=== PATIENT | male | born 1990 ===

== ENCOUNTER 2024-10-07 03:13 | Day surgery (SDC) | payer MEDICAID, SELFPAY ==
[2024-10-07] VITALS (10 sets, daily range): BP systolic 106–161; BP diastolic 66–95; PULSE 52–77; RESP 16–20; TEMP 36.1–37.3; O2SAT 92–97; BMI 35.4
--- NOTE | ~2024-10-07 | CT_ITS ---
CLINICAL HISTORY: L flank pain, hematuria CT abdomen and pelvis without contrast Comparison: None Findings: Mild dependent subsegmental atelectasis is seen in bilateral lower lobes. There is diffuse hypoattenuation of the liver with focal fatty sparing near the hayde hepatis and gallbladder fossa. 8 mm stone is seen at the left ureterovesical junction with severe left hydroureteronephrosis and mild asymmetric left perinephric edema. The noncontrast appearance of the gallbladder, pancreas, spleen, bilateral adrenal glands, and right kidney is within normal limits. There is no evidence of bowel obstruction. The appendix appears normal. There is no pneumoperitoneum or ascites. No adenopathy is seen. No acute fracture. IMPRESSION: 1. 8 mm stone at the left ureterovesical junction with severe left hydroureteronephrosis and mild asymmetric left perinephric edema. 2. Hepatic steatosis. This document has been electronically signed by: Kalen Silva on 10/07/2024 07:31:24
--- NOTE | ~2024-10-07 | FL_ITS ---
EXAMINATION: FL GUIDANCE ONLY HISTORY: left ureteral stone COMPARISON: Correlation is made with a CT of the abdomen and pelvis without contrast performed earlier in the day. TECHNIQUE: Fluoroscopy time: 31.5 seconds. Cumulative Dose: 18.99 mGy. Images: 3. FINDINGS: Images demonstrate placement of a left nephroureteral stent. FL/FL guidance in OR IMPRESSION: Fluoroscopy during procedure. Please see procedure report for additional information. Electronically signed by: Efren Mills MD 10/08/2024 07:12 AM EDT
[2024-10-07 03:46] LABS: Basophils Percent Auto 0.2 % (0-2); Hematocrit 40.1 % (42.0-52.0); Hemoglobin 14.6 g/dl (14.0-18.0); Imm Gran Abs Auto 0.07 X10*3/uL (0.00-0.03); Imm Gran Pct Auto 0.4 % (0.0-0.4); Lymphocytes Absolute Auto 2.3 X10*3/uL (1.2-4.9); Lymphocytes Percent Auto 13.6 % (20-40); Mean Corpuscular HGB Conc 36.4 g/dl (31.0-36.0); Mean Corpuscular Hemoglobin 31.7 pg (27.0-33.0); Mean Corpuscular Volume 87.2 fL (80.0-98.0); Mean Platelet Volume 9.4 fL (9.4-12.4); Monocytes Absolute Auto 1.6 X10*3/uL (0.1-1.2); Monocytes Percent Auto 9.9 % (2-11); Neutrophils Absolute Auto 12.6 x10*3/uL (2.0-8.3); Neutrophils Percent Auto 75.9 % (45-73); Platelet Count 337 X10*3/uL (160-400); Red Cell Distribution Width 11.9 % (11.0-16.0); SCAN SMEAR FLAG 1; White Blood Count 16.6 X10*3/uL (4.8-10.8)
[2024-10-07 03:49] LABS: MANUAL DIFF FLAG SCAN
[2024-10-07 04:04] LABS: SLIDE REVIEW VERIFIED
[2024-10-07 04:05] LABS: Alanine Aminotransferase 45 U/L (0-40); Albumin Level 4.8 g/dL (3.5-5.0); Alkaline Phosphatase 85 U/L (39-117); Anion Gap 16 (12-20); Aspartate Amino Transferase 34 U/L (5-37); Blood Urea Nitrogen 17 mg/dL (9-16); Calcium 9.5 mg/dL (8.4-10.2); Carbon Dioxide 23 mmol/L (22-29); Chloride 104 mmol/L (96-108); Creatinine Clr Calc Pharmacy 77.1; Estimated Glomerular Filt Rate 49; Glucose Random 124 mg/dL (60-115); Lipase 11 U/L (8-78); Potassium 3.7 mmol/L (3.3-5.1); Sodium 139 mmol/L (135-145); Total Protein 7.7 g/dL (6.5-8.0)
[2024-10-07 04:44] LABS: Appearance Urine Clear; Color Urine Yellow; Glucose Urine UA Negative (Negative); Leukocyte Esterase Urine Small (1+) (Negative); Nitrite Urine Negative (Negative); PH 7.5 (5.0-9.0); Specific Gravity - Urine >= 1.030 (1.005-1.025); UMIC TRIGGER UACC YES; Urine Blood Small (1+) (Negative); Urine Ketones Trace mg/dL (Negative); Urine Protein 30 (1+) mg/dL (Neg-Trace)
[2024-10-07 04:46] LABS: Bacteria Urine None Seen (None Seen); Hyaline Casts Urine 0-2 /LPF (0-2); RBC Urine >20 /HPF (0-2); Squamous Epithelial Cell Urine 0-2 /HPF (0-2); UACC Culture Trigger YES
--- NOTE | 2024-10-07 06:04 | ED_ITS ---
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 His partners states he was thrashing around and in so much pain. He has had n/v but no diarrhea. He thinks his urine is normal. He has no pain with moving or touching his back and no known injury. He states he felt pain in his L testicle as well but no discharge, rash, no pain now. no hx of renal colic. MD Complaint: other (n/v flank pain) Onset (ago): day(s) (yesterday AM) Duration: constant Location: left flank Radiation: left testicle Severity: severe Quality: sharp Relieving factors: none Exacerbating factors: none Associated symptoms: Reports nausea/vomiting Related Data Allergies Allergy/AdvReac Type Severity Reaction Status Date / Time No Known Allergies Allergy Verified 10/07/24 03:32 Review of Systems 2 Review of Systems: Constitutional : No Weight loss, No Fever, No Chills ENT/Mouth : No sore throat, No Rhinorrhea Eyes: No Swelling, No Redness Cardiovascular : No Chest Pain, No SOB, NoEdema Respiratory : No Cough, No Sputum, No Wheezing Gastrointestinal : Positive Nausea, Positive Vomiting, no Diarrhea, positive abdominal Pain, No Hematochezia, No Melena Genitourinary : pos Dysuria, No Urinary Frequency, No Hematuria, No Urgency Musculoskeletal : No joint pain, No Myalgias, No Joint Swelling Skin : No Skin Lesions, No rash Neuro : No Weakness, No Numbness, No Dizziness, No Headache All other systems reviewed and are negative. [facility] Past Medical History Attestation statement: The following information was validated with the patient. Source: old records reviewed Medical History (Updated 10/07/24 @ 06:54 by Zonia Wade DO) No pertinent past medical history Social History Social History (Updated 10/07/24 @ 06:18 by Zonia Wade DO) Patient Tobacco Use Status: Never used Tobacco Advance Directives: No Advance Directives Information Provided: No Physical Exam 2 Vital Signs: Vital Signs: Last Vital Signs Temp 97.9 F 10/07/24 05:44 Pulse 59 10/07/24 05:44 Resp 16 10/07/24 05:44 BP 161/82 H 10/07/24 05:44 Pulse Ox 97 10/07/24 05:44 O2 Del Method Room Air 10/07/24 05:44 BMI result Body Mass Index 35.4 Appearance: Alert. Oriented X3. No acute distress. Eyes: Pupils equal, round and reactive to light. ENT: Pharynx normal. Neck: Normal inspection. Neck supple. CVS: Normal heart rate and rhythm. Pulses normal. Respiratory: No respiratory distress. Breath sounds normal. Abdomen: Soft and nontender. no L flank ttp : no testicular pain or mass Skin: Skin warm and dry. Normal skin color. Normal skin turgor. Extremities: No lower extremity edema. Neuro: Oriented X 3. No motor deficit. No sensory deficit. CN2-12 intact Medications Administered Discontinued Medications Generic Name Dose Route Start Last Admin Trade Name López PRN Reason Stop Dose Admin Lactated Ringer's 1,000 mls @ 999 mls/hr 10/07/24 05:50 10/07/24 06:28 Lr IV 10/07/24 06:50 999 mls/hr .Q1H1M ONE Administration Lactated Ringer's 1,000 mls @ 999 mls/hr 10/07/24 05:51 10/07/24 06:29 Lr IV 10/07/24 06:51 999 mls/hr .Q1H1M ONE Administration Ondansetron HCl 4 mg 10/07/24 05:50 10/07/24 06:26 Ondansetron Hcl 4 Mg/2 Ml Vial IVPUSH 10/07/24 05:51 4 mg ONCE ONE Administration Medical Decision Making Medical Decision Making MDM Narrative: 34 yo male with no sig PMH here with c/o L flank pain and n/v has hematuria in urine as well - will need basic labs, UA, CT scan for renal colic. IV zofran ordered for symptoms. I suspect at this time he has renal colic vs MSK strain. He is in no pain now after waiting - suspect passed stop or the stone has stopped moving. Differential Diagnosis Differential Diagnoses: The differential diagnosis associated with the presentation includes renal colic, constipation, MSK strain Admission/Observation Consideration of admission/observation: Escalation of care including admission/observation considered Lab Data MDM Lab Attestation statement: I reviewed the patient's lab results. 10/07/24 03:41 10/07/24 03:41 Labs: Lab Results 10/07/24 10/07/24 Range/Units 03:41 04:25 WBC 16.6 H (4.8-10.8) X10*3/uL RBC 4.60 (4.60-5.80) X10*6/uL Hgb 14.6 (14.0-18.0) g/dl Hct 40.1 L (42.0-52.0) % MCV 87.2 (80.0-98.0) fL MCH 31.7 (27.0-33.0) pg MCHC 36.4 H (31.0-36.0) g/dl RDW 11.9 (11.0-16.0) % Plt Count 337 (160-400) X10*3/uL MPV 9.4 (9.4-12.4) fL Immature Gran % (Auto) 0.4 (0.0-0.4) % Neut % (Auto) 75.9 H (45-73) % Lymph % (Auto) 13.6 L (20-40) % Power % (Auto) 9.9 (2-11) % Eos % (Auto) 0.0 (0-4) % Baso % (Auto) 0.2 (0-2) % Lymph # (Auto) 2.3 (1.2-4.9) X10*3/uL Power # (Auto) 1.6 H (0.1-1.2) X10*3/uL Eos # (Auto) 0.0 (0.0-0.4) X10*3/uL Baso # (Auto) 0.0 (0.0-0.2) X10*3/uL Abs Immat Gran (auto) 0.07 H (0.00-0.03) X10*3/uL Absolute Neuts (auto) 12.6 H (2.0-8.3) x10*3/uL Absolute Nucleated RBC 0.000 (0.0-0.012) X10*3/uL Nucleated RBC % (auto) 0.0 (0.0-0.2) /100WBC Smear Tech's Comments VERIFIED Sodium 139 (135-145) mmol/L Potassium 3.7 (3.3-5.1) mmol/L Chloride 104 (96-108) mmol/L Carbon Dioxide 23 (22-29) mmol/L Anion Gap 16 (12-20) BUN 17 H (9-16) mg/dL Creatinine 1.61 H (0.5-1.4) mg/dL Estim Creat Clear Calc 77.1 Estimated GFR 49 Random Glucose 124 H (60-115) mg/dL Calcium 9.5 (8.4-10.2) mg/dL Total Bilirubin 1.0 (0.0-1.0) mg/dL AST 34 (5-37) U/L ALT 45 H (0-40) U/L Alkaline Phosphatase 85 (39-117) U/L Total Protein 7.7 (6.5-8.0) g/dL Albumin 4.8 (3.5-5.0) g/dL Lipase 11 (8-78) U/L Urine Color Yellow Urine Appearance Clear Urine pH 7.5 (5.0-9.0) Ur Specific [place] >= 1.030 H (1.005-1.025) Urine Protein 30 (1+) H (Neg-Trace) mg/dL Urine Glucose (UA) Negative (Negative) mg/dL Urine Ketones Trace (Negative) mg/dL Urine Blood Small (1+) H (Negative) Urine Nitrite Negative (Negative) Ur Leukocyte Esterase Small (1+) H (Negative) Urine RBC >20 H (0-2) /HPF Urine WBC 6-10 H (0-5) /HPF Ur Squamous Epith Cells 0-2 (0-2) /HPF Urine Bacteria None Seen (None Seen) Hyaline Casts 0-2 (0-2) /LPF Independent Interpretation I performed an independent interpretation of an: CT Scan (L UVJ stone large) Radiology Impression Discussion of test interpretation with radiology: I have reviewed the radiologist's reading. Independent Historian Clinical information obtained from an independent historian. History obtained from or confirmed by: Spouse External Record Review External record reviewed: Outpatient record Prescription Management I considered prescription management with: Other Discharge Plan Discharge Clinical Impression: Left flank pain, Left ureteral stone, PEDRO (acute kidney injury) Instructions: Flank Pain (ED) Print Language: Amharic
[2024-10-07] MEDS: ondansetron HCL 4 MG/2 ML VIAL IVPUSH (06:26)
[2024-10-07] MEDS: Lactated Ringers 1,000 ML 999 ML IV ×2 (06:28→06:29)
--- NOTE | 2024-10-07 06:45 | PC.NURSE ---
assumed care of pt, Respirations even and unlabored. Pt complains of nausea, Medicated per JUN.
[2024-10-07] MEDS: Midazolam HCl 2 MG/2 ML VIAL IVPUSH (10:08)
[2024-10-07] MEDS: Lactated Ringers 1,000 ML 125 ML IVCONT (10:08)
--- NOTE | 2024-10-07 11:40 | PC.NURSE ---
Assumed care of this patient at 1100, patient moved out to [facility] for space needs of the department. Walked to with a steady gait. Informed he will be going to procedure later this afternoon, previous RN Sana spoke to [facility] gave report. Patient resting quietly on stretcher at this time.
--- NOTE | 2024-10-07 14:34 | P.HPGS_ITS ---
History of Present Illness History of Present Illness Date of Service: 10/07/24 Chief complaint: lower pack pain Narrative: Iglesia Gaines is a 34 year old male who presented to the ED with left flank pain associated with nausea and vomiting. CTAP 8 mm distal left ureteral stone with hydronephrosis. Urinalysis no signs for infection. Review of Systems Review of Systems: Yes all other systems are reviewed and are negative Constitutional: Constitutional: Reports no additional constitutional complaints Eyes: Eyes: Reports no additional eye complaints ENT: Reports system reviewed and no additional complaints, except as documented Cardiovascular: Cardiovascular: Reports no additional cardiovascular complaints Respiratory: Respiratory: Reports no additional respiratory complaints Gastrointestinal: Gastrointestinal: Reports no additional gastrointestinal complaints Genitourinary: Genitourinary: Reports as per HPI Musculoskeletal: Musculoskeletal: Reports no additional musculoskeletal complaints Integumentary/Breasts: Skin/Breast: Reports system reviewed and no additional complaints, except as docu Neurologic: Reports system reviewed and no additional complaints, except as documented Psychiatric: Psychiatric: Reports no additional psychiatric complaints Endocrine: Endocrine: Reports no additional endocrine complaints Hematologic/Lymphatic: Hematologic/Lymphatic: Reports no additional hematologic/lymphatic complaints Allergic/Immunologic: Allergic/Immunologic: Reports no additional allergic/immunologic complaints PMFSH Past Medical History Medical History (Updated 10/07/24 @ 14:37 by Medardo Turpin MD) No pertinent past medical history Social History Social History (Updated 10/07/24 @ 06:18 by Zonia Wade DO) Patient Tobacco Use Status: Never used Tobacco Advance Directives: No Advance Directives Information Provided: No Meds Allergies Allergy/AdvReac Type Severity Reaction Status Date / Time No Known Allergies Allergy Verified 10/07/24 03:32 Active Medications: Current Medications Lactated Ringer's (Lr) 1,000 mls @ 125 mls/hr IVCONT .Q8H CYNTHIA Last Admin: 10/07/24 10:08 Dose: 125 mls/hr Cefazolin Sodium/Dextrose (Ancef) 2 gm in 50 mls @ 100 mls/hr IV PREOP ONE Stop: 10/07/24 15:01 Physical Exam Vital Signs: Vital Signs: Last Vital Signs Temp 99.1 F 10/07/24 14:21 Pulse 73 10/07/24 14:21 Resp 16 10/07/24 14:21 BP 132/78 10/07/24 14:21 Pulse Ox 94 10/07/24 14:21 O2 Del Method Room Air 10/07/24 14:21 BMI result Body Mass Index 35.4 Const: General: healthy appearing, no acute distress and well developed Orientation/consciousness: patient oriented x3 HEENT: Head: Yes normocephalic and Yes atraumatic Eyes: Conjunctivae: conjunctivae normal Neck: Neck: Yes normal visual inspection Chest: Chest palpation & inspection: normal inspection of the chest Resp: Effort & Inspection: normal respiratory effort GI: Inspection: Yes normal to inspection : General: Yes CVA tenderness (Left) Back/Spine/Pelvis: Back: CVA tenderness (Left) Neuro: General: patient oriented x3 Psych: Appearance: grossly normal Affect: normal affect Results Results Labs: Short CBC 10/07/24 Range/Units 03:41 WBC 16.6 H (4.8-10.8) X10*3/uL Hgb 14.6 (14.0-18.0) g/dl Hct 40.1 L (42.0-52.0) % Plt Count 337 (160-400) X10*3/uL BMP 10/07/24 03:41 Sodium 139 Potassium 3.7 Chloride 104 Carbon Dioxide 23 BUN 17 H Creatinine 1.61 H Calcium 9.5 Liver Function 10/07/24 Range/Units 03:41 Total Bilirubin 1.0 (0.0-1.0) mg/dL AST 34 (5-37) U/L ALT 45 H (0-40) U/L Alkaline Phosphatase 85 (39-117) U/L Albumin 4.8 (3.5-5.0) g/dL Urine 10/07/24 Range/Units 04:25 Urine Color Yellow Urine Appearance Clear Urine pH 7.5 (5.0-9.0) Ur Specific [place] >= 1.030 H (1.005-1.025) Urine Protein 30 (1+) H (Neg-Trace) mg/dL Urine Glucose (UA) Negative (Negative) mg/dL Abdomen CT scan report/results: report reviewed and image reviewed CT scan - pelvis: report reviewed and image reviewed Additional studies: Date of Service: 10/07/24 CLINICAL HISTORY: L flank pain, hematuria CT abdomen and pelvis without contrast Comparison: None Findings: Mild dependent subsegmental atelectasis is seen in bilateral lower lobes. There is diffuse hypoattenuation of the liver with focal fatty sparing near the hayde hepatis and gallbladder fossa. 8 mm stone is seen at the left ureterovesical junction with severe left hydroureteronephrosis and mild asymmetric left perinephric edema. The noncontrast appearance of the gallbladder, pancreas, spleen, bilateral adrenal glands, and right kidney is within normal limits. There is no evidence of bowel obstruction. The appendix appears normal. There is no pneumoperitoneum or ascites. No adenopathy is seen. No acute fracture. IMPRESSION: 1. 8 mm stone at the left ureterovesical junction with severe left hydroureteronephrosis and mild asymmetric left perinephric edema. Assessment and Plan (1) PEDRO (acute kidney injury): Status: Acute (2) Left ureteral stone: Status: Acute (3) Left flank pain: Status: Acute (4) Hydronephrosis, left: Status: Acute Plan Left obstructive uropathy. Plan for Cystoscopy, left ureteroscopy, possible laser lithotripsy, possible ureteral stent. Risks discussed included but not limited to, possible need to repeat procedure if stone is not completely fragmented, Irritative voiding symptoms, bladder spasms, urgency, blood in urine. Quality Stroke Does the patient have a stroke diagnosis?: No VTE Prior VTE?: No VTE Risk Level:: Surgical - low VTE Device Contraindication: N/A - Device Ordered VTE Drug Contraindication: Treatment Not Indicated Procedures Date of Service Date of Service: 10/07/24
--- NOTE | 2024-10-07 15:06 | PC.NURSE ---
Pt taken to pre-op by OR tech.
--- NOTE | 2024-10-07 15:48 | HO.ANESPROP2 ---
HPI - Anesthesia Eval Consult details Narrative: 34 M for cystoscopy and stent PMFSH Active Problems Active Problems: All Active Problems Hydronephrosis, left (Acute) PEDRO (acute kidney injury) (Acute) Left ureteral stone (Acute) Left flank pain (Acute) Past Medical History Medical History No pertinent past medical history Family History Family history of problems with anesthesia: No Surgical History Surgical History No pertinent past surgical history History of Problems with Anesthesia: No Social History Social History Patient Tobacco Use Status: Former Tobacco user Tobacco use type: Cigarette Years Smoked: 15 Smoked in Last 30 Days: No Use of substances other than those prescribed or required for medical reasons: No Have you been hit, kicked, punched, or otherwise hurt by someone within the past year? If so, by whom?: No Are you DNR?: No Advance Directives: No Advance Directives Information Provided: No Advance Directives on File: No Poor oral hygiene: No Meds Allergies Allergy/AdvReac Type Severity Reaction Status Date / Time No Known Allergies Allergy Verified 10/07/24 15:14 Active Medications: Current Medications Lactated Ringer's (Lr) 1,000 mls @ 125 mls/hr IVCONT .Q8H CYNTHIA Last Admin: 10/07/24 10:08 Dose: 125 mls/hr Home Medications ?Medication ?Instructions ?Recorded ?Confirmed ?Last Taken ?Type No Known Home Meds 10/07/24 10/07/24 Unknown History Exam Height,Weight and Vital Signs: Height 5 ft 9 in Weight 240 lb Last Vital Signs Temp 98.7 F 10/07/24 15:28 Pulse 77 10/07/24 15:28 Resp 16 10/07/24 15:28 BP 134/73 10/07/24 15:28 Pulse Ox 93 10/07/24 15:28 O2 Del Method Room Air 10/07/24 15:28 Pertinent Lab Results Pertinent Lab Results: Laboratory Tests 10/07/24 10/07/24 03:41 04:25 WBC 16.6 H RBC 4.60 Hgb 14.6 Hct 40.1 L MCV 87.2 MCH 31.7 MCHC 36.4 H RDW 11.9 Plt Count 337 MPV 9.4 Immature Gran % (Auto) 0.4 Neut % (Auto) 75.9 H Lymph % (Auto) 13.6 L [place] % (Auto) 9.9 Eos % (Auto) 0.0 Baso % (Auto) 0.2 Lymph # (Auto) 2.3 [place] # (Auto) 1.6 H Eos # (Auto) 0.0 Baso # (Auto) 0.0 Abs Immat Gran (auto) 0.07 H Absolute Neuts (auto) 12.6 H Absolute Nucleated RBC 0.000 Nucleated RBC % (auto) 0.0 Smear Tech's Comments VERIFIED Sodium 139 Potassium 3.7 Chloride 104 Carbon Dioxide 23 Anion Gap 16 BUN 17 H Creatinine 1.61 H Estim Creat Clear Calc 77.1 Estimated GFR 49 Random Glucose 124 H Calcium 9.5 Total Bilirubin 1.0 AST 34 ALT 45 H Alkaline Phosphatase 85 Total Protein 7.7 Albumin 4.8 Lipase 11 Urine Color Yellow Urine Appearance Clear Urine pH 7.5 Ur Specific [place] >= 1.030 H Urine Protein 30 (1+) H Urine Glucose (UA) Negative Urine Ketones Trace Urine Blood Small (1+) H Urine Nitrite Negative Ur Leukocyte Esterase Small (1+) H Urine RBC >20 H Urine WBC 6-10 H Ur Squamous Epith Cells 0-2 Urine Bacteria None Seen Hyaline Casts 0-2 Airway Mallampati Class: II TM Dist: >3cm Neck ROM: Full Loose/Missing/Broken Teeth: Yes Assessment and Plan Assessment Anesthesia Assessment: Anesthesia Plan Discussed and Chart Reviewed Final Anesthetic Review Family History of Problems with Anesthesia: No History of Problems with Anesthesia: No NPO: Yes ASA Class: II Final Preanesthetic Review: No Changes in Pt Med Stat, Meds/Allgs Chart Reviewed, Consent Obtained/Reviewed and Anes Risks/Benef Reviewed Patient Risk: Low Procedure Risk: Low Anesthetic Plan Anesthetic Plan: GA Disposition: Standard PACU
[2024-10-07] MEDS: Phenazopyridine HCL 200 MG TABLET PO (18:07)
--- NOTE | 2024-10-07 18:10 | W.PM.OPN ---
Operative Note Operative Note Date of Service: 10/07/24 Narrative: PreOperative Diagnosis:?? Left distal ureteral stone. Left hydronephrosis Post Operative Diagnosis:??Left distal ureteral stone. Left hydronephrosis Procedure: - Cystoscopy, left retrograde, left ureteroscopy laser lithotripsy stent insertion, 6 Mongolian by 22-32 cm Surgeon:?Dr Medardo Turpin Anesthesia:? General Indications for procedure: CTAP-10/07/2024 - 8 mm obstructive distal ureteral stone with left hydronephrosis Procedure: After informed consent was verified the patient was brought to the operating placed on the OR table in supine position.? General Anesthesia was administered per protocol.? The patient was placed in lithotomy position, prepped and draped in the usual sterile fashion.? Safety pause time-out and side of surgery confirmed.? Antibiotics confirmed. 2% lidocaine jelly 10 mL was passed transurethrally. Attempts to pass the 22 Mongolian cystoscope with resistance, Boni sounds were used to dilate the meatus starting with a 16 Mongolian and sequentially dilating up to a 24 Mongolian. A 22 Mongolian cystoscope was inserted transurethrally, the bulbous urethra was within normal limits. The prostatic urethra was nonobstructive. The bladder was visualized.? Both ureteric orifices were in normal position. There was edema noted around the left ureteral orifice. An open-ended ureteral catheter was passed into the left ureteral orifice and a retrograde examination was performed. There was a filling defect in the distal ureter consistent with the stone. A guidewire was passed through the ureteral catheter into the kidney. The balloon dilator size 12 fr x 4 cm was passed over the guide-wire the balloon was inflated to 8 mmHg and the intramural ureter was dilated for 30 seconds. The balloon was deflated and removed. After removing the balloon dilator, The cystoscope was removed, leaving both the guidewire in place. The guidewire was used as the safety and was attached to the draping. The semi rigid ureteroscope along with a 2nd guidewire was passed transurethrally to the level of the stone in the distal ureter. One guidewire was then removed. Laser lithotripsy of the stone was done using the 365 fiber with pulsating setting, 12.0 w, 1.5 joules, 8 hertz. There was good fragmentation of the stone. The 0 degree basket was passed through the ureteroscope, stone fragment(s) removed and sent for analysis. The ureteroscope was removed. The cystoscope was passed over the safety guidewire. A?6 Mongolian by 22-32 cm stent was placed into the ureter and renal pelvis under a combination of fluoroscopy and direct visualization. The bladder was emptied.? The rigid cystoscope was removed. ? The patient tolerated the procedure well and was brought to the recovery room in stable condition. Complications: None Drains: Ureteral stent as dictated above
== END 2024-10-07 18:16 | disposition home or self-care (01) ==
LOC: HO.ED 09:55 → HO.SSS 17:13
PROVIDERS: Emergency Medicine; Emergency Provider Emergency Medicine Emergency Medical Services; Visit Provider Urology
PROC: (CPT 52356; principal; 2024-10-07 15:00)
DX: N13.2 Hydronephrosis with renal and ureteral calculous obstruction (principal); N17.9 Acute kidney failure, unspecified; R11.2 Nausea with vomiting, unspecified; K76.0 Fatty (change of) liver, not elsewhere classified; N28.89 Other specified disorders of kidney and ureter
CPT/HCPCS: 52356; 36415; 74176; 80053; 81001; 82365; 83690; 85025; 87086; 88300; 96361; 96374; 99285; C1726; C1758; C1769; C2617; J0131; J0690; J1100; J2003; J2250; J2405; J2704; J3010; J7120; Q9967

== ENCOUNTER → 2024-10-07 05:41 | Outpatient (BNV) | payer MEDICAID, SELFPAY | PROVIDERS: Emergency Provider Emergency Medicine Emergency Medical Services; Visit Provider Urology | DX: N17.9 Acute kidney failure, unspecified (principal); N20.1 Calculus of ureter; R10.9 Unspecified abdominal pain; N13.30 Unspecified hydronephrosis | CPT/HCPCS: 52356; 74420; 99283 ==

== ENCOUNTER → 2024-10-07 05:50 | Outpatient (BNV) | payer MEDICAID, SELFPAY | PROVIDERS: Emergency Provider Emergency Medicine Emergency Medical Services; Visit Provider Radiology Vascular & Interventional Radiology | DX: N20.1 Calculus of ureter (principal) | CPT/HCPCS: 74176 ==

== ENCOUNTER 2024-10-13 13:25 | Outpatient (AMB) | payer MEDICAID, SELFPAY ==
--- NOTE | 2024-10-13 13:53 | MHC.OFFVIS ---
Intake Visit Reasons: stent removal Intake Note: New patient presents today for initial visit for stent removal Urology Medication:Pyridium Blood Thinner:None Antibiotic Allergies:None Lot: [id number] Exp: 07-07-26 Allergies No Known Allergies Allergy (Verified 10/13/24 13:54) HPI Comments Details: History of Present Illness - The patient is a 34-year-old male presenting for cystoscopy stent removal. - The patient underwent left ureteroscopy with laser lithotripsy for an 8 mm distal ureteral stone on 10/07/24. - Stone fragments were sent for analysis post-procedure. Plan - Conduct a 24-hour urine collection - Follow up to review results of urine collection and stone analysis. [facility] Medical History No pertinent past medical history Surgical History No pertinent past surgical history Social History Patient Tobacco Use Status: Former Tobacco user Tobacco use type: Cigarette Years Smoked: 15 Review of Systems Const All systems reviewed & are unremarkable except as noted in HPI and below Reports no additional complaints Eyes Reports no additional complaints ENT Reports no additional complaints Card Reports no additional complaints Resp Reports no additional complaints GI Reports no additional complaints Reports as per HPI Musc Reports no additional complaints Skin/Breast Reports system reviewed and no additional complaints, except as documented Neuro Reports no additional complaints Psych Reports no additional complaints Endo Reports no additional complaints Brian/Lymph Reports no additional complaints Aller/Immun Reports no additional complaints Office Procedures Cystoscopy Consent Discussed risk and benefit or proposed procedure with the patient. Information consent for procedure given to the patient. Discussed technical aspects, risks, benefits and alternatives in full. Addressed all of the patient's questions and concerns regarding the procedure. The patient demonstrated knowledge and understanding. They wish to proceed with this procedure. Preparation The patient was prepped in the usual manner. A sheet metal mechanic was present and in the room. Genitalia was prepped with betadine solution in a sterile manner. Lidocaine Jelly 2% was placed into the urethra and 16Fr flexible Olympus cystoscope was inserted into the meatus after adequate lubrication. Procedure Time out per protocol performed. The flexible cystoscope is passed transurethrally: Cystoscopy findings: mild edema ureteral orifice which is expected, distal end of ureteral stent visualized. The grasping forceps were used and the stent was removed without difficulty. 62472-Ujdofavawm with stent removal DISPOSABLE SCOPE URO-G FLEXIBLE SCOPE Procedure code (CPT) selection complete Office Meds lidocaine HCl 2 % mucosal jelly in applicator Performing Provider: Medardo Turpin MD Performing Location: [facility] Administered by: Kurt Caputo LPN on 10/13/24 14:05 Dose Route Admin Location Dispensed Lot Number Expiration Date ND Information Technology Account Manager 10 mL intra-urethral 20 mL ciprofloxacin HCl 500 mg tablet Performing Provider: Medardo Turpin MD Performing Location: [facility] Administered by: Kurt Caputo LPN on 10/13/24 14:05 Dose Route Admin Location Dispensed Lot Number Expiration Date NDC Information Technology Account Manager 500 mg PO 1 tab naproxen 500 mg tablet Performing Provider: Medardo Turpin MD Performing Location: [facility] Administered by: Kurt Caputo LPN on 10/13/24 14:05 Dose Route Admin Location Dispensed Lot Number Expiration Date NDC Information Technology Account Manager 500 mg PO 1 tab phenazopyridine 200 mg tablet Performing Provider: Medardo Turpin MD Performing Location: [facility] Administered by: Kurt Caputo LPN on 10/13/24 14:05 Dose Route Admin Location Dispensed Lot Number Expiration Date N[employer] Information Technology Account Manager 200 mg PO 1 tab Results AMB Urinalysis, Automated UA Leukoctes 15 Jarad/uL Last Edit by Kimberly Alex on 10/13/24 16:23 UA Nitrite Negative Last Edit by Kimberly Alex on 10/13/24 16:23 UA Urobilinogen 17 mg/dL Last Edit by Kimberly Alex on 10/13/24 16:23 UA Protein 1.0 mg/dL Last Edit by Kimberly Alex on 10/13/24 16:23 UA pH 7.0 Last Edit by Kimberly Alex on 10/13/24 16:23 UA Blood 80 Abhilash/uL Last Edit by Kimberly Alex on 10/13/24 16:23 UA Specific [place] 1.010 Last Edit by Kimberly Alex on 10/13/24 16:23 UA Ketone Negative Last Edit by Kimberly Alex on 10/13/24 16:23 UA Bilirubin 0 mg/dL Last Edit by Kimberly Alex on 10/13/24 16:23 UA Glucose 0 mg/dL Last Edit by Kimberly Alex on 10/13/24 16:23 Results Reviewed Results Reviewed: Laboratory Last Values Urine pH (Auto) 7.0 10/13/24 16:19 Specific [place] (Auto) 1.010 10/13/24 16:19 Urine Protein (Auto) 1.0 mg/dL 10/13/24 16:19 Glucose (UA)(Auto) 0 mg/dL 10/13/24 16:19 Urine Ketones (Auto) Negative 10/13/24 16:19 Urine Blood (Auto) 80 Abhilash/uL 10/13/24 16:19 Urine Nitrite (Auto) Negative 10/13/24 16:19 Urine Bilirubin (Auto) 0 mg/dL 10/13/24 16:19 Urine Urobilinogen (Auto) 17 mg/dL 10/13/24 16:19 Leukocyte Esterase (Auto) 15 Jarad/uL 10/13/24 16:19 Assessment & Plan Assessment & Plan (1) Ureteral stone: Code(s): N20.1 - Calculus of ureter Category: Medical Plan Stent removed. 24 hr urine Orders: Orders AMB Urinalysis Automated 10/13/24 Z13.9 - Encounter for screening, unspecified AMB Cystoscopy 10/13/24 R10.9 - Unspecified abdominal pain, N20.1 - Calculus of ureter, N13.30 - Unspecified hydronephrosis Patient Instructions: The patient had an opportunity to ask questions regarding treatment plan. The patient expressed understanding and agreement with the above treatment plan. The patient is aware they should contact our office by phone for worsening of their current condition or the appearance of new symptoms. Compliance is encouraged with any medications and followup testing that is ordered. It is a privilege to be allowed the opportunity to participate in the urologic care of your patient. If you have any questions or concerns regarding treatment for the above conditions please do not hesitate to contact me. The office telephone contact is [phone]. This note is constructed in part using voice recognition software. While every effort has been made to ensure accuracy central office equipment installer errors may have been included. Yours sincerely, Medardo Turpin MD Scribe Plan - Not visible on output: Patient was informed and verbally consented to the use of an ambient scribe for clinic note documentation during this visit. Coding Level of Care Code Procedure Only Diagnoses Ureteral stone N20.1 CPT Codes Cystoscopy - CPT: 62434-[id number] with stent removal ([id number])
--- OUTSIDE RECORDS SUMMARY | 2024-10-13 14:53 | XMS_ITS | Clinical Summary ---
Author Organization [address] Address [address] [place] [id number] Phone Care Team Providers Care Merchandising Team Lead Name Role Phone Unavailable Primary Care Provider Unavailabl e Allergies No known active allergies Medications nicotine (NICODERM CQ) [address] 1 patch (7 mg total) onto the skin daily. Alternate arms/sites when applying patch. Discard old patch when applying new one 28 patch 3 Active Active Problems No known active problems Social History Tobacco Use Types Packs/Day Years Used Date Smoking Tobacco: Every Day Cigarettes Smokeless Tobacco: Current Tobacco Cessation:Ready to Q uit: Yes; Counseling Given: Yes Alcohol Use Standard Drinks/Week Comments Never 0 (1 standard drink = 0.6 oz pur e alcohol) Interpersonal Safety Answer Date Record ed Is there anyone in your life that is hurting or threatening you in anyway? Not on file 01/12/2023 Physical Indicators of Abuse No evidence of phys ical abuse 01/12/2023 Sex and Gender Information Value Date Recorded Sex Assigned at Male 01/03/2023 5:33 AM EDT Legal Sex Male 5:06 PM EDT Gender Identity Male 01/03/2023 5:33 AM EDT Sexual Orientation Don't know 01/05/2023 2: 03 PM EDT Last Filed Vital Signs Vital Sign Reading Time Taken Comments Blood Pressure 122/78 01/12/2023 1:11 PM EDT Pulse 83 01/12/2023 1:11 PM EDT Temperature 36.6 ??C (97.9 ??F) 01/12/2023 1:11 PM ED T Respiratory Rate 17 01/03/2023 7:05 AM EDT Oxygen Saturation 97% 01/12/2023 1:11 PM EDT Inhaled Oxygen Concentration - - Weight 97.1 kg (214 lb) 01/12/2023 1:11 PM EDT Height - - Body Mass Index - - Plan of Treatment Health Maintenance Due Date Last Done Comments HIV screening 01/22/2001 Hepatitis C screening 01/22/2006 Pneumococcal Vaccine (2 - 49 years) (1 of 2 - PCV) 01/22/2007 Tetanus adult (Td q 10,TDAP once) 2008 Covid-19 vaccine series (2 - season) 2023 07/29/2020 Influenza vaccine 12/29/2024 RSV Immunization (1 - 1-dose 75+ series) 01/22/2063 Meningococcal Vaccine Aged Out No jace reymundo eligible based on patient's age to complete this topic [place] Sub[place] Plan / Payer (Ef fective 2022-Present) Name:Iglesia Jones Relation to Subscriber:Self Name:Iglesia Jones Payer ID:[id number] Group ID:Not on file Type:Not on file Address: [address] [place] [id number]
== END 2024-10-13 14:54 | disposition home or self-care (01) ==
LOC: HO.HUSH 13:26
PROVIDERS: Visit Provider Urology
DX: R10.9 Unspecified abdominal pain (principal); N20.1 Calculus of ureter; N13.30 Unspecified hydronephrosis; Z96.0 Presence of urogenital implants; Z13.9 Encounter for screening, unspecified
CPT/HCPCS: 52310

== ENCOUNTER → 2024-10-13 13:25 | Outpatient (BNVA) | payer MEDICAID, SELFPAY | PROVIDERS: Visit Provider Urology | DX: N20.1 Calculus of ureter (principal) | CPT/HCPCS: 52310; 81003 ==